=== PATIENT | male | born 1945 | race Caucasian/White ===

== ENCOUNTER 2017-10-08 14:43 | Emergency (ER) | payer MEDICARE, OTHER ==
[2017-10-08] MEDS ORDERED: IPRATROPIUM/ALBUTEROL 0.5-2.5 MG/3 ML AMPUL NEB ONE (16:17)
--- NOTE | 2017-10-08 16:19 | ER Document Report ---
ED Medical Screen (RME) - General Chief Complaint: Cough Stated Complaint: COUNGH/HIP PAIN Time Seen by Provider: 10/08/17 16:07 Mode of Arrival: Ambulatory Information source: Patient Notes: 72 yr old male presents with 2 ocomplants. pt notes 1 week duration of left hip pain as well as 3-4 day duration of productive white cough denies any fevers or chills I have greeted and performed a rapid initial assessment of this patient. A comprehensive ED assessment and evaluation of the patient, analysis of test results and completion of the medical decision making process will be conducted by additional ED providers. PHYSICAL EXAMINATION: GENERAL: Well-appearing, well-nourished and in no acute distress. HEAD: Atraumatic, normocephalic. EYES: Pupils equal round extraocular movements intact, conjunctiva are normal. ENT: Nares patent NECK: Normal range of motion LUNGS: No respiratory distress Musculoskeletal: Normal range of motion NEUROLOGICAL: Normal speech, normal gait. PSYCH: Normal mood, normal affect. SKIN: Warm, Dry, normal turgor, no rashes or lesions noted. TRAVEL OUTSIDE OF THE [place] IN LAST 30 DAYS: No - Related Data Allergies/Adverse Reactions: No Known Allergies Allergy (Unverified 01/08/16 14:53) Past Medical History - Social History Chew tobacco use (# tins/day): No Frequency of alcohol use: Occasional Drug Abuse: None Family history: Reviewed & Not Pertinent - Past Medical History Cardiac Medical History: Reports: Hx Hypercholesterolemia, Hx Hypertension Renal/ Medical History: Denies: Hx Peritoneal Dialysis Past Surgical History: Reports: Hx Tonsillectomy Physical Exam - Vital signs Vitals: Temp Pulse Resp BP Pulse Ox 97.7 F 50 L 20 152/49 H 97 10/08/17 14:49 10/08/17 14:49 10/08/17 14:49 10/08/17 14:49 10/08/17 14:49 Course - Vital Signs Vital signs: Temp Pulse Resp BP Pulse Ox 97.7 F 50 L 20 152/49 H 97 10/08/17 14:49 10/08/17 14:49 10/08/17 14:49 10/08/17 14:49 10/08/17 14:49 Doctor's Discharge - Discharge Referrals: WILDA REED MD [Primary Care Provider] - Follow up as needed
[2017-10-08 16:45] LABS: ABSOLUTE EOSINOPHILS # (AUTO) 0.1 10^3/uL (0.0-0.6); ABSOLUTE LYMPHOCYTES (AUTO) 1.1 10^3/uL (0.5-4.7); ABSOLUTE MONOCYTES (AUTO) 1.1 10^3/uL (0.1-1.4); ABSOLUTE NEUT (AUTO) 7.4 10^3/uL (1.7-8.2); BASOPHILS % (AUTO) 0.3 % (0-2); EOSINOPHILS % (AUTO) 0.6 % (0-6); HEMATOCRIT 37.7 % (37.9-51.0); HEMOGLOBIN 12.7 g/dL (13.5-17.0); LYMPHOCYTES % (AUTO) 11.5 % (13-45); MEAN CORPUSCULAR HEMOGLOBIN 31.7 pg (27.0-33.4); MEAN CORPUSCULAR HGB CONC 33.7 g/dL (32.0-36.0); MEAN CORPUSCULAR VOLUME 94 fl (80-97); MONOCYTES % (AUTO) 11.7 % (3-13); PLATELET COUNT 140 10^3/uL (150-450); RED BLOOD COUNT 4.01 10^6/uL (4.35-5.55); RED CELL DISTRIBUTION WIDTH 14.8 % (11.5-14.0); SEGMENTED NEUTROPHILS % (AUTO) 75.9 % (42-78); TOTAL CELLS COUNTED % (AUTO) 100 %; WHITE BLOOD COUNT 9.8 10^3/uL (4.0-10.5)
[2017-10-08] MEDS ORDERED: HYDROCODONE/ACETAMINOPHEN 5-325 MG TABLET PO ONE (16:58)
[2017-10-08] MEDS ORDERED: ALBUTEROL SULFATE 0.083% NEB 2.5 MG/3 ML AMPUL NEB ONE (16:58)
[2017-10-08 17:01] LABS: ALANINE AMINOTRANSFERASE 30 U/L (21-72); ALBUMIN 3.7 g/dL (3.5-5.0); ALKALINE PHOSPHATASE 45 U/L (38-126); ANION GAP 9 (5-19); ASPARTATE AMINO TRANSFERASE 18 U/L (17-59); BILIRUBIN,DIRECT 0.5 mg/dL (0.0-0.4); BILIRUBIN,TOTAL 0.7 mg/dL (0.2-1.3); BLOOD UREA NITROGEN 46 mg/dL (7-20); CALCIUM 8.8 mg/dL (8.4-10.2); CARBON DIOXIDE 32 mmol/L (22-30); CHLORIDE 103 mmol/L (98-107); GLUCOSE 118 mg/dL (75-110); POTASSIUM 3.8 mmol/L (3.6-5.0); SODIUM 143.6 mmol/L (137-145); TOTAL PROTEIN 6.6 g/dL (6.3-8.2)
--- NOTE | 2017-10-08 18:07 | RADIOLOGY REPORT (SQ) ---
EXAM DESCRIPTION: CHEST 2 VIEWS COMPLETED DATE/TIME: 10/08/2017 5:09 pm REASON FOR STUDY: cough productive COMPARISON: None. EXAM PARAMETERS: NUMBER OF VIEWS: two views TECHNIQUE: Digital Frontal and Lateral radiographic views of the chest acquired. RADIATION DOSE: NA LIMITATIONS: none FINDINGS: LUNGS AND PLEURA: No opacities, masses or pneumothorax. No pleural effusion. MEDIASTINUM AND HILAR STRUCTURES: No masses or contour abnormalities. HEART AND VASCULAR STRUCTURES: Heart normal size. No evidence for failure. BONES: No acute findings. HARDWARE: None in the chest. OTHER: No other significant finding. IMPRESSION: NO ACUTE RADIOGRAPHIC FINDING IN THE CHEST. TECHNICAL DOCUMENTATION: JOB ID: [id number] [employer]- All Rights Reserved Reading location - IP/workstation name: [email or web address]
--- NOTE | 2017-10-08 18:11 | RADIOLOGY REPORT (SQ) ---
EXAM DESCRIPTION: HIP LEFT AP/LATERAL COMPLETED DATE/TIME: 10/08/2017 5:09 pm REASON FOR STUDY: left hip pain COMPARISON: 01/08/2016 NUMBER OF VIEWS: Two views. TECHNIQUE: AP pelvis and additional frog-leg view of the left hip. LIMITATIONS: None. FINDINGS: MINERALIZATION: Normal. LEFT HIP: No acute fracture. Ring osteophytes. RIGHT HIP: No fracture or dislocation. No worrisome bone lesions. PUBIS AND ISCHIUM: No fracture. PELVIS: No fracture. SACRUM: No fracture or dislocation. No worrisome bone lesions. LOWER LUMBAR SPINE: Lower lumbar degenerative changes. SOFT TISSUES: No findings. OTHER: No other significant finding. IMPRESSION: No acute fracture. Mild degenerative changes. TECHNICAL DOCUMENTATION: JOB ID: [id number] [employer]- All Rights Reserved Reading location - IP/workstation name: [email or web address]
[2017-10-08] MEDS ORDERED: LIDOCAINE 5% (700 MG) TRANSDERMAL ADH..PATCH TP ONE (18:12)
[2017-10-08] MEDS ORDERED: NORMAL SALINE 500 ML IV ONE (18:19)
--- NOTE | 2017-10-08 18:39 | ER Document Report ---
ED General - General Chief Complaint: Cough Stated Complaint: COUNGH/HIP PAIN Time Seen by Provider: 10/08/17 16:07 Mode of Arrival: Ambulatory Information source: Patient Notes: Patient presents complaining of a one-week history of left lateral hip pain. Patient also reports a 3 or 4 day history of productive cough with white sputum. Patient denies any chest pain, fever or shortness of breath. Patient states that his is immune compromised and he wants to be sure that he is not going to give her any infection. Patient does state that he saw the urgent care this past week and was prescribed prednisone Toradol and Flexeril for his hip pain. Patient states he has additionally been taking naproxen at home to help with his pain symptoms. Patient denies any injury. She denies any fever. TRAVEL OUTSIDE OF THE [place] IN LAST 30 DAYS: No - HPI Onset: Last week Onset/Duration: Persistent Quality of pain: Achy Pain Level: 4 Associated symptoms: Productive cough. denies: Chest pain, Diarrhea, Fever, Leg swelling, Nausea, Vomiting, Shortness of breath Exacerbated by: Denies Relieved by: Denies Similar symptoms previously: Yes Recently seen / treated by doctor: Yes - Related Data Allergies/Adverse Reactions: No Known Allergies Allergy (Unverified 01/08/16 14:53) Past Medical History - General Information source: Patient - Social History Smoking Status: Former Smoker Chew tobacco use (# tins/day): No Frequency of alcohol use: Occasional Drug Abuse: None Occupation: Retired Lives with: Spouse/Significant other Family History: Reviewed & Not Pertinent Patient has suicidal ideation: No Patient has homicidal ideation: No - Past Medical History Cardiac Medical History: Reports: Hx Hypercholesterolemia, Hx Hypertension Renal/ Medical History: Denies: Hx Peritoneal Dialysis Past Surgical History: Reports: Hx Tonsillectomy Review of Systems - Review of Systems Constitutional: No symptoms reported. denies: Fever, Recent illness EENT: No symptoms reported Cardiovascular: No symptoms reported. denies: Chest pain, Dizziness Respiratory: Cough, Sputum, Wheezing. denies: Short of breath Gastrointestinal: No symptoms reported. denies: Abdominal pain, Diarrhea, Nausea, Vomiting Genitourinary: No symptoms reported. denies: Burning, Dysuria, Flank pain Male Genitourinary: No symptoms reported Musculoskeletal: Joint pain - Left lateral hip. denies: Back pain Skin: No symptoms reported Hematologic/Lymphatic: No symptoms reported Neurological/Psychological: No symptoms reported Physical Exam - Vital signs Vitals: Temp Pulse Resp BP Pulse Ox 97.7 F 50 L 20 152/49 H 97 10/08/17 14:49 10/08/17 14:49 10/08/17 14:49 10/08/17 14:49 10/08/17 14:49 - General General appearance: Appears well, Alert In distress: None - HEENT Head: Normocephalic, Atraumatic Eyes: Normal Conjunctiva: Normal Nasal: Normal Pharynx: Normal Neck: Normal, Supple. No: Lymphadenopathy - Respiratory Respiratory status: No respiratory distress Chest status: Nontender Breath sounds: Productive cough, Rhonchi, Wheezing Chest palpation: Normal - Cardiovascular Rhythm: Regular Heart sounds: S1 appreciated, S2 appreciated - Abdominal Inspection: Morbidly Obese Distension: No distension Bowel sounds: Normal Tenderness: Nontender - Back Back: Normal, Nontender. No: CVA tenderness - Extremities General upper extremity: Normal inspection, Normal ROM General lower extremity: Tender - Left hip tenderness, Normal ROM Hip: Tender - Left hip tenderness over lateral aspect greater trochanter. Tenderness increases with sitting and is relieved with standing position, Other - Normal skin color and temperature overlying joint. No: Deformity, Dislocation , Ecchymosis, Unable to bear weight Thigh: Normal, Nontender - Neurological Neuro grossly intact: Yes Cognition: Normal [place] Coma Scale Eye Opening: Spontaneous Kourtney Coma Scale Verbal: Oriented Kourtney Coma Scale Motor: Obeys Commands Kourtney Coma Scale Total: 15 - Psychological Associated symptoms: Normal affect, Normal mood - Skin Skin Temperature: Warm Skin Moisture: Dry Skin Color: Normal Course - Re-evaluation Re-evalutation: 10/08/17 18:35 Patient with elevated BUN of 46 and creatinine 1.37. Patient has not had any previous laboratory studies performed here to compare. Patient states that his normal GFR baseline is in the 40s. Patient states that he may have been told that he had chronic kidney disease in the past although is not certain. Patient has been taking Toradol 10 mg 3 times daily for the past 5 days in addition to naproxen for his arthritic pain. Patient advised that he should not take any NSAIDs at this time. Patient encouraged to follow-up with his primary doctor tomorrow so that he can have his blood tests rechecked in 2 days. Patient advised that if he cannot follow-up with his primary doctor to have this blood test rechecked in 2 days that he can return here for reevaluation given we are approaching a holiday. Chest x-ray reviewed, no concern for pneumonia. No leukocytosis, no fever. Patient with good air movement bilaterally decreased wheezing after nebulizer treatment. 10/08/17 19:22 Report and handout given to Dmitry PATTERSON. Patient is pending IV fluid infusion and then will be discharged to follow-up with his primary doctor tomorrow. - Vital Signs Vital signs: Temp Pulse Resp BP Pulse Ox 97.7 F 50 L 20 152/49 H 97 10/08/17 14:49 10/08/17 14:49 10/08/17 14:49 10/08/17 14:49 10/08/17 14:49 - Laboratory Result Diagrams: 10/08/17 16:30 10/08/17 16:30 Laboratory results interpreted by me: 10/08/17 10/08/17 16:30 16:30 RBC 4.01 L Hgb 12.7 L Hct 37.7 L RDW 14.8 H Plt Count 140 L Lymphocytes % 11.5 L Carbon Dioxide 32 H BUN 46 H Creatinine 1.37 H Est GFR (Non-Af Amer) 51 L Glucose 118 H Direct Bilirubin 0.5 H 10/08/17 18:35 Labs- Entire Visit 10/08/17 10/08/17 16:30 16:30 WBC 9.8 RBC 4.01 L Hgb 12.7 L Hct 37.7 L MCV 94 MCH 31.7 MCHC 33.7 RDW 14.8 H Plt Count 140 L Seg Neutrophils % 75.9 Lymphocytes % 11.5 L Monocytes % 11.7 Eosinophils % 0.6 Basophils % 0.3 Absolute Neutrophils 7.4 Absolute Lymphocytes 1.1 Absolute Monocytes 1.1 Absolute Eosinophils 0.1 Absolute Basophils 0.0 Sodium 143.6 Potassium 3.8 Chloride 103 Carbon Dioxide 32 H Anion Gap 9 BUN 46 H Creatinine 1.37 H Est GFR ( Amer) > 60 Est GFR (Non-Af Amer) 51 L Glucose 118 H Calcium 8.8 Total Bilirubin 0.7 Direct Bilirubin 0.5 H Neonat Total Bilirubin Not Reportable Neonat Direct Bilirubin Not Reportable Neonat Indirect Bili Not Reportable AST 18 ALT 30 Alkaline Phosphatase 45 Total Protein 6.6 Albumin 3.7 - Diagnostic Test Radiology reviewed: Reports reviewed Discharge - Discharge Clinical Impression: Wheezing, Abnormal renal function test, Arthritis, Left hip pain Upper respiratory infection Qualifiers: URI type: unspecified URI Qualified Code(s): J06.9 - Acute upper respiratory infection, unspecified Condition: Stable Disposition: HOME, SELF-CARE Instructions: Acetaminophen, Arthritis ([facility]), Inhaled Bronchodilators ([facility]), Steroid Medication, Upper Respiratory Illness ([facility]) Additional Instructions: Return immediately for any new or worsening symptoms Followup with your primary care provider, call tomorrow to make a followup appointment You need to have your renal function test repeated in 2 days. Call your doctor tomorrow for follow-up appointment. It is important that you avoid taking any type of NSAID including Motrin, Aleve , Naprosyn, and Toradol. These medications can impair your renal functioning. If you are unable to follow-up with your primary doctor in a timely manner to have your blood work rechecked he may return to the emergency department. Use your walker that you have at home to help with ambulation. Prescriptions: Albuterol Sulfate [Ventolin 0.083% Neb 2.5 mg/3 ml Ampul] 1 vial NEB Q4 PRN #30 vial PRN Reason: Lidocaine [Lidoderm 5% (700 mg) Transdermal Patch] 1 patch TP DAILY #10 adh..patch Prednisone [Deltasone 10 mg Tablet] 10 mg PO ASDIR PRN #21 tablet PRN Reason: Referrals: WILDA REED MD [[facility]UNITY BASED STAFF] - Follow up as needed CARLOS JACKSON MD [Primary Care Provider] - Follow up tomorrow
[2017-10-08 19:54] VITALS: BP 159/53
== END 2017-10-08 20:15 | disposition home or self-care (01) ==
LOC: ER 14:43
DX: J06.9 Acute upper respiratory infection, unspecified (principal); M19.90 Unspecified osteoarthritis, unspecified site; M25.552 Pain in left hip; R94.4 Abnormal results of kidney function studies; R05 Cough; I10 Essential (primary) hypertension; R06.2 Wheezing; Z87.891 Personal history of nicotine dependence
CPT/HCPCS: 94640 ×2; 99284; 96360; 36415; 85025; 80053; 71046; 73502; J7040; A9270 ×3; J7620